=== PATIENT | male | born 1995 | race Two or more races ===

== ENCOUNTER 2016-09-25 11:30 | Emergency (ER) | payer MEDICAID, OTHER ==
[~2016-09-25] VITALS: Ht 165.1 cm; Wt 76.0 kg
[2016-09-25] MEDS ORDERED: FAMOTIDINE 20 MG/2 ML IVP ONE (13:30)
[2016-09-25] MEDS ORDERED: ONDANSETRON 2MG/ML, 2ML IVPush ONE (13:30)
[2016-09-25 14:05] LABS: HEMOGLOBIN 16.8 g/dL (13.7-18.0)
[2016-09-25 14:14] LABS: ASPARTATE AMINO TRANSFERASE 15 U/L (15-37); BLOOD UREA NITROGEN 8 mg/dL (7-18)
[2016-09-25] MEDS ORDERED: MAALOX/HYOSCYAMINE/LIDOCAINE 45 ML BOTTLE ONE (15:24)
[2016-09-25] MEDS ORDERED: FLUT9.9S NAS (15:26)
[2016-09-25] MEDS ORDERED: allergy medication PO (15:26)
[2016-09-25] MEDS ORDERED: MAALOX/HYOSCYAMINE/LIDOCAINE 45 ML BOTTLE PO ONE (15:30)
[2016-09-25 15:38] LABS: PATH.CAST-FLAG NOT PRESENT; SPERM-FLAG NOT PRESENT; SRC-FLAG NOT PRESENT; XTAL-FLAG NOT PRESENT; YLC-FLAG NOT PRESENT
[2016-09-25 17:18] VITALS: BP 101/64
== END 2016-09-25 17:21 | disposition home or self-care (01) ==
LOC: ED 16:29
DX: K29.00 Acute gastritis without bleeding (principal); F17.200 Nicotine dependence, unspecified, uncomplicated
CPT/HCPCS: 36415; 76700; 80053; 81001; 83690; 85025; 99285